=== PATIENT | male | born 1990 | race Caucasian/White ===

== ENCOUNTER 2017-07-06 20:16 | Emergency (ER) | payer SELFPAY ==
[~2017-07-06] VITALS: Ht 165.1 cm; Wt 97.5 kg
[2017-07-06 21:11] VITALS: Ht 165.1 cm; Wt 97.5 kg
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
[2017-07-07] MEDS ORDERED: HYDR-906 PO (00:09)
[2017-07-07] MEDS ORDERED: ACET500C5 PO (00:09)
[2017-07-07] MEDS ORDERED: CYCL-319 PO (00:09)
== END 2017-07-07 00:23 | disposition home or self-care (01) ==
LOC: FTE 20:16
DX: S16.1XXA Strain of muscle, fascia and tendon at neck level, initial encounter (principal); S39.012A Strain of muscle, fascia and tendon of lower back, initial encounter; V49.40XA Driver injured in collision with unspecified motor vehicles in traffic accident, initial encounter
CPT/HCPCS: 72125; 72128

== ENCOUNTER 2017-09-09 05:46 | Emergency (ER) | payer MEDICAID ==
[~2017-09-09] VITALS: Ht 170.2 cm; Wt 95.5 kg
[~2017-09-09 05:46] MED LIST: ACET500C5 PO; CYCL-319 PO; HYDR-906 PO
[2017-09-09 05:57] VITALS: Ht 170.2 cm; Wt 95.5 kg
--- NOTE | 2017-09-09 06:18 | ERD ---
ER Documentation Chief Complaint Chief Complaint R testicular lump for 3 days; but worse pain today HPI Otherwise healthy 26-year-old male presenting with a chief complaints of right testicular mass that is 3-7 out of 10 and pain 3 weeks. Denies hematuria, dysuria, multiple sexual partners. No rash, fever, chills, recent weight loss, night sweats. No similar symptoms in the past or sick contacts. Vaccination status up-to-date. No recent travel. Patient has no other complaints and describes no other associated manifestations. Nursing notes have been reviewed and are consistent with history given. ROS All systems reviewed and are negative except as per history of present illness. 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 Head: Atraumatic Repro: Mildly tender, mobile mass on the proximal aspect of the right side of the scrotum. Resp: No respiratory distress, wheezing, use of accessory muscles. Cardio: Cap refill less than 2 seconds. Pulses 2+ bilaterally. Abd: Soft, non tender, non distended. Normal bowel sounds Skin: No petechiae or rashes Neur: Awake and alert Psych: Normal Mood and Affect Results 24 hrs Current Medications Medications (Trade) Dose Ordered Sig/Berny Route PRN Reason Start Time Stop Time Status Last Admin Dose Admin Acetaminophen/ Hydrocodone Bitart ([place] (5/325)) 1 tab ONCE ONCE PO 09/09/17 06:30 09/09/17 06:31 DC 09/09/17 06:15 Procedures/MDM Otherwise healthy 26-year-old male presenting with a chief complaints of right testicular lump that is mildly painful 3 weeks. Denies dysuria, discharge, intercourse with multiple partners. [place] was given with adequate relief of symptoms. Ultrasound of the site was obtained, read by the radiologist, given the following impression: Scrotal cyst. Otherwise unremarkable. Most likely diagnosis is scrotal cyst versus scrotal mass of unknown etiology. At this time a little suspicion for testicular torsion, epididymitis, UTI, acute abdomen, or other SBI. I recommended follow-up within the next 1-3 days with PCP for further evaluation for possible chronic conditions. I have spoke with the patient regarding their condition and future management. They have verbally responded that they understand their status and treatment plan. The patients vitals are stable, and their current condition is appropriate for discharge. The patient will be given discharge instructions with return precautions. Departure Diagnosis: Primary Impression: Scrotal cyst Condition: Stable Additional Instructions: Follow up with your PCP within the next 1-3 days for a more thorough evaluation and a possible referral to a specialist. Return the the emergency department immediately if symptoms worsen or change. If you have any questions regarding medications, ask your pharmacist or us before you leave. If any adverse reactions occur while taking your medications, discontinue the treatment and return to the emergency department immediately. Take your medications as directed, and complete the entire course of treatment. DANIEL PENA PA-C Sep 09, 2017 06:18
[2017-09-09] MEDS ORDERED: HYDROCODONE/APAP (5/325) TAB PO ONE (06:30)
--- NOTE | 2017-09-09 09:31 | RADRPT ---
PROCEDURE: US Scrotum. CLINICAL INDICATION: Right scrotal mass TECHNIQUE: Multiple sonographic images of the scrotal region were obtained utilizing a linear arra y transducer with grayscale and color-flow and a Doppler imaging. The images were reviewed on a high -resolution PACS workstation. COMPARISON: No prior studies are available for comparison. FINDINGS: The right testicle is well visualized and has a normal echotexture. No focal areas of abnormal echog enicity are visualized. The right testicle measures measures 4.3 x 2.5 x 3.3 cm. There is normal col or-flow. There is a 1.5 cm right epididymal cyst.. There is normal color-flow. The left testicle is well visualized and has a normal echotexture. No focal areas abnormal echogenic ity are visualized. The left testicle measures measures 3.6 x 2.0 x 3.0 cm. There is normal color-fl ow. The left epididymis is visualized and is unremarkable in appearance. There is normal color-flow. The scrotal wall is unremarkable. No swelling or edema is seen. There are small bilateral hydrocel es. No varicocele is seen. IMPRESSION: Normal testicles. Right epididymal cyst. Small hydroceles. .Antonio Root MD, Date Time Electronically viewed and signed by .Antonio Root MD, on 09/09/2017 07:06 .A/
== END 2017-09-09 09:19 | disposition home or self-care (01) ==
LOC: FTE 05:46
DX: N50.89 Other specified disorders of the male genital organs (principal); Z87.891 Personal history of nicotine dependence
CPT/HCPCS: 76870; Z7502; Z7610

== ENCOUNTER 2018-06-16 06:58 | Emergency (ER) | END 2018-06-16 08:57 | disposition home or self-care (01) ==

== ENCOUNTER 2018-06-23 10:42 | Emergency (ER) | END 2018-06-23 14:07 | disposition home or self-care (01) ==

== ENCOUNTER 2018-07-18 09:40 | Emergency (ER) | END 2018-07-18 11:40 | disposition home or self-care (01) ==